=== PATIENT | male | born 1945 | race Caucasian/White ===

== ENCOUNTER 2021-06-15 18:02 | Emergency (ER) | payer OTHER, MEDICAID ==
[~2021-06-15] VITALS: Ht 172.7 cm; Wt 72.6 kg
[2021-06-15] MEDS ORDERED: SODIUM CHLORIDE 0.9% 1,000 ML IV ONE (18:15)
[2021-06-15] MEDS ORDERED: MORPHINE SULFATE 4 MG/ML CPJ (NOT FOR IM USE) IV ONE (18:15)
[2021-06-15] MEDS ORDERED: ONDANSETRON HCL 4MG/2ML INJ IV ONE (18:15)
[2021-06-15 19:04] LABS: BASOPHILS % 0.6 % (0.0-2.0); EOSINOPHILS % 3.3 % (0.0-5.0); HEMATOCRIT. 38.6 % (42.0-52.0); HEMOGLOBIN. 13.2 g/dL (14.0-18.0); LYMPHOCYTES % 21.8 % (20.0-50.0); MEAN CORPUSCULAR HEMOGLOBIN 31.1 pg (28.0-32.0); MEAN PLATELET VOLUME 8.9 fl (7.4-10.4); MONOCYTES % 8.1 % (2.0-8.0); NEUTROPHILS % 66.2 % (40.0-76.0); PLATELET 152 x1000/uL (130-400); RED BLOOD CELL COUNT 4.25 mill/uL (4.7-6.1); RED CELL DISTRIBUTION WIDTH 13.7 % (11.6-14.6)
[2021-06-15 19:08] LABS: CHLORIDE 109 mEq/L (98-107)
[2021-06-15] MEDS ORDERED: LORAZEPAM 2MG/ML CPJ IV ONE (21:45)
[2021-06-15] MEDS ORDERED: OLANZAPINE 10 MG/VIAL IM ONE (21:45)
[2021-06-15] MEDS ORDERED: HYDR-4001 MT (21:51)
[2021-06-15] MEDS ORDERED: IBUP-2029 MT (21:51)
[2021-06-15] MEDS ORDERED: IOHEXOL-350 100 ML BOTTLE ONE (21:56)
[2021-06-16 01:16] VITALS: BP 155/83
== END 2021-06-16 01:29 | disposition home or self-care (01) ==
LOC: ER 18:02
DX: S82.041A Displaced comminuted fracture of right patella, initial encounter for closed fracture (principal); M23.91 Unspecified internal derangement of right knee; I10 Essential (primary) hypertension; E78.00 Pure hypercholesterolemia, unspecified; N40.0 Benign prostatic hyperplasia without lower urinary tract symptoms; W01.0XXA Fall on same level from slipping, tripping and stumbling without subsequent striking against object, initial encounter; Y93.89 Activity, other specified; Y92.488 Other paved roadways as the place of occurrence of the external cause
CPT/HCPCS: 36415; 73564; 73706; 80053; 85025; 96361; 96374; 96375; 99285; J2270; J2405; J7030; L1830; Q9967